=== PATIENT | female | born 1950 | race Caucasian/White ===

== ENCOUNTER 2017-03-21 16:28 | Inpatient (IN) | payer OTHER ==
[2017-03-21 16:59] VITALS: BMI 29.0
[2017-03-21 19:32] LABS: MCHC 28.1 g/dl (32.0-36.0); MEAN CELL VOLUME 58.8 fl (80-96); MEAN PLT VOLUME 9.1 fl (7.5-11.1); PLATELET COUNT 338 K/MM3 (134-434); RDW 19.8 % (11.6-15.6)
[2017-03-21 19:35] LABS: MCH 16.5 pg (25.7-33.7)
--- NOTE | 2017-03-21 19:36 | PDOC ---
History of Present Illness - General Chief Complaint: Pain Stated Complaint: COLD SYMPTOMS Time Seen by Provider: 03/21/17 19:31 History Source: Patient Exam Limitations: Language Barrier (The patient's sister provided South Korean translation.) - History of Present Illness Initial Comments: CHIEF COMPLAINT: 66 y/o afebrile female with PMH HTN c/o feeling fatigued x over 1 week. HISTORY OF PRESENT ILLNESS: The patient states she has had to have blood transfusions in the past and she has been worked up twice at [facility] and a cause has never been found. She is not on iron supplements. She denies f/c, n/ v/d, dizziness, CP, SOB, abd pain, rectal bleeding, hematemesis. PCP is at [facility]. Vital signs on arrival are notable for temp of 99.4 REVIEW OF SYSTEMS: GENERAL/CONSTITUTIONAL: No fever/chills. No weakness. No weight change. + fatigue HEAD, EYES, EARS, NOSE AND THROAT: No change in vision. No ear pain or discharge. No sore throat. CARDIOVASCULAR: No chest pain or shortness of breath. RESPIRATORY: No cough, wheezing, or hemoptysis. GASTROINTESTINAL: No abd pain, nausea, vomiting, diarrhea. GENITOURINARY: No dysuria, frequency, or change in urination. MUSCULOSKELETAL: No joint or muscle swelling or pain. No neck or back pain. SKIN: No rash or easy bruising. NEUROLOGIC: No headache, vertigo, loss of consciousness, or loss of sensation. PHYSICAL EXAM: GENERAL: The patient is awake, alert, and fully oriented, in no acute distress. She is well appearing, ambulatory, in NAD or obvious discomfort. HEAD: Normal with no signs of trauma. ENT: Pupils equal, round and reactive to light, extraocular movements intact, sclera anicteric, conjunctiva very pale. Neck supple. LUNGS: Clear to auscultation bilaterally. Normal excursion. No respiratory distress or use of accessory muscles. CV: RRR, S1/S2, no MRG. Cap refill < 2 sec. ABDOMEN: Soft, non-distended, non-tender even to deep palpation, no hepatomegaly or splenomegaly, no masses. EXTREMITIES: Normal range of motion, no edema. NEUROLOGICAL: Normal speech, normal gait. CN II-XII grossly intact. PSYCH: Normal mood, normal affect. SKIN: Warm, dry, normal turgor, no rashes or lesions noted. Past History - Past Medical History Allergies/Adverse Reactions: Allergies Allergy/AdvReac Type Severity Reaction Status Date / Time No Known Allergies Allergy Verified 03/21/17 16:55 Home Medications: Ambulatory Orders Amlodipine Besylate 5 mg PO DAILY 03/21/17 - Psycho/Social/Smoking Cessation Hx Anxiety: No Suicidal Ideation: No Smoking History: Never smoked Have you smoked in the past 12 months: No Information on smoking cessation initiated: No Hx Alcohol Use: No Drug/Substance Use Hx: No Substance Use Type: None *Physical Exam - Vital Signs Last Vital Signs Temp Pulse Resp BP Pulse Ox 99.4 F 90 18 143/73 99 03/21/17 16:55 03/21/17 16:55 03/21/17 16:55 03/21/17 16:55 03/21/17 16:55 Heart Score/ECG Review - ECG Intrepretation Comment:: Twelve-lead EKG was performed and reviewed by Dr. Chen. There is normal sinus rhythm with sinus arrhythmia. The axis is normal. The intervals are normal. There are no ST or T wave abnormalities. Impression: Normal twelve-lead EKG ED Treatment Course - LABORATORY CBC & Chemistry Diagram: 03/21/17 19:15 03/21/17 20:00 Medical Decision Making - Medical Decision Making A/P: 66 y/o afebrile female with fatigue x over 1 week with prior history of blood transfusions. Plan is as follows: 1. Labs 2. EKG 3. UA 4. Stool occult blood Laboratory Tests 03/21/17 19:15 Hgb 5.9 L* Hct 20.9 L CXR IMPRESSION: Cardiomegaly. No acute disease. Blood type - O+ Will order 2 units of PRBCs Spoke with Dr. Ward, hospitalist, who accepts admission to non-cardiac tele. Supposedly she's been worked up in the past for her anemia at [facility] but we have no records here so will do full admission. Occult stool negative Pt made aware of the plan and is amenable. *DC/Admit/Observation/Transfer Diagnosis at time of Disposition: Anemia Qualifiers: Anemia type: unspecified type Qualified Code(s): D64.9 - Anemia, unspecified - Discharge Dispostion Condition at time of disposition: Stable Admit: Yes - Referrals Referrals: Rosa Escobar MD [Primary Care Provider] -
[2017-03-21 19:41] LABS: INR 1.11 (0.82-1.09); PROTHROMBIN TIME (PATIENT) 12.2 SEC (9.98-11.88)
--- NOTE | 2017-03-21 19:56 | PDOC ---
*Physical Exam - Vital Signs Last Vital Signs Temp Pulse Resp BP Pulse Ox 99.4 F 90 18 143/73 99 03/21/17 16:55 03/21/17 16:55 03/21/17 16:55 03/21/17 16:55 03/21/17 16:55 ED Treatment Course - LABORATORY CBC & Chemistry Diagram: 03/23/17 07:19 03/22/17 06:00 - ADDITIONAL ORDERS Additional order review: Laboratory Results 03/21/17 19:15 INR 1.11 03/21/17 19:15 RBC 3.55 L MCV 58.8 L MCHC 28.1 L RDW 19.8 H MPV 9.1 Neutrophils % Y Lymphocytes % Y Medical Decision Making - Medical Decision Making 03/21/17 19:56 agree with care from MIKAYLA Balderas *DC/Admit/Observation/Transfer Diagnosis at time of Disposition: Anemia - Discharge Dispostion Disposition: HOME Condition at time of disposition: Stable - Prescriptions
[2017-03-21 20:25] LABS: ALBUMIN 3.7 g/dl (3.4-5.0); ALK PHOS 68 U/L (45-117); ANION GAP 10 (8-16); BILIRUBIN,TOTAL 0.4 mg/dL (0.2-1.0); CALCIUM 8.6 mg/dL (8.5-10.1); CO2 23 mmol/L (21-32); CREATININE 0.8 mg/dL (0.55-1.02); GLUCOSE,RANDOM 88 mg/dL (74-106); SGOT/AST 19 U/L (15-37); SGPT/ALT 21 U/L (12-78); TOT PROT 6.9 g/dl (6.4-8.2)
[2017-03-21 20:37] LABS: ANISOCYTOSIS 1+; HYPOCHROMIA 3+; PLATELET ESTIMATE ADEQUATE (NORMAL); POIKILOCYTOSIS 1+; POLYCHROMASIA 1+
[2017-03-21 20:38] LABS: MICROCYTOSIS 3+; OVALOCYTES 1+; TARGET CELLS 1+
--- NOTE | 2017-03-21 22:29 | HP ---
CHIEF COMPLAINT: SOB and lightheadedness PCP: Dr. Escobar at [facility] HISTORY OF PRESENT ILLNESS: This is a 66yo woman with PMH of HTN who presents for care today after experiencing lightheadedness and SOB. She states she was in her [place] when she suddenly became lightheaded and was not able to catch her breath while lying down. She states this happened approximately 1 year ago which required transfusions for anemia. She states her w/u did not reveal a cause for anemia. She denies hematemesis, hematochezia, hemoptysis, chest pain , headaches, nausea or vomiting. ER course was notable for: (1) Hgb-5.9 (2) Pyuria Recent Travel: denies PAST MEDICAL HISTORY: HTN PAST SURGICAL HISTORY: denies Social History: Smoking: denies Alcohol: denies Drugs: denies Family History: Allergies No Known Allergies Allergy (Verified 03/21/17 16:55) HOME MEDICATIONS: Home Medications 3 Medication Instructions Recorded Amlodipine Besylate 5 mg PO DAILY 03/21/17 REVIEW OF SYSTEMS CONSTITUTIONAL: Absent: fever, chills, diaphoresis, generalized weakness, malaise, loss of appetite, weight change HEENT: Absent: rhinorrhea, nasal congestion, throat pain, throat swelling, difficulty swallowing, mouth swelling, ear pain, eye pain, visual changes CARDIOVASCULAR: Present- lightheadedness Absent: chest pain, syncope, palpitations, irregular heart rate, peripheral edema RESPIRATORY: Present- shortness of breath Absent: cough, dyspnea with exertion, orthopnea, wheezing, stridor, hemoptysis GASTROINTESTINAL: Absent: abdominal pain, abdominal distension, nausea, vomiting, diarrhea, constipation, melena, hematochezia GENITOURINARY: Absent: dysuria, frequency, urgency, hesitancy, hematuria, flank pain, genital pain MUSCULOSKELETAL: Absent: myalgia, arthralgia, joint swelling, back pain, neck pain SKIN: Absent: rash, itching, pallor HEMATOLOGIC/IMMUNOLOGIC: Absent: easy bleeding, easy bruising, lymphadenopathy, frequent infections ENDOCRINE: Absent: unexplained weight gain, unexplained weight loss, heat intolerance, cold intolerance NEUROLOGIC: Present- Lightheadedness Absent: headache, focal weakness or paresthesias, unsteady gait, seizure, mental status changes, bladder or bowel incontinence PSYCHIATRIC: Absent: anxiety, depression, suicidal or homicidal ideation, hallucinations. PHYSICAL EXAMINATION Vital Signs - 24 hr 3 06/22/17 16:55 Temperature 99.4 F Pulse Rate 90 Respiratory 18 Rate Blood Pressure 143/73 O2 Sat by Pulse 99 Oximetry (%) GENERAL: Awake, alert, and fully oriented, in no acute distress. HEAD: Normal with no signs of trauma. EYES: Pupils equal, round and reactive to light, extraocular movements intact, sclera anicteric, conjunctiva pale. No lid lag. EARS, NOSE, THROAT: Ears normal, nares patent, oropharynx clear without exudates. Moist mucous membranes. Pale mucous membranes. NECK: Normal range of motion, supple without lymphadenopathy, JVD, or masses. LUNGS: Breath sounds equal, clear to auscultation bilaterally. No wheezes, and no crackles. No accessory muscle use. HEART: Regular rate and rhythm, normal S1 and S2 without, rub or gallop. 2/6 systolic murmur across precordium. ABDOMEN: Soft, nontender, not distended, normoactive bowel sounds, no guarding, no rebound, no masses. No hepatomegaly or splenomegaly. MUSCULOSKELETAL: Normal range of motion at all joints. No bony deformities or tenderness. No CVA tenderness. UPPER EXTREMITIES: 2+ pulses, warm, well-perfused. No cyanosis. No clubbing. No peripheral edema. LOWER EXTREMITIES: 2+ pulses, warm, well-perfused. No calf tenderness. No peripheral edema. NEUROLOGICAL: Cranial nerves II-XII intact. Normal speech. Normal gait. Rhomberg (-). PSYCHIATRIC: Cooperative. Good eye contact. Appropriate mood and affect. SKIN: Warm, dry, normal turgor, no rashes or lesions noted, normal capillary refill. Laboratory Results - last 24 hr 3 03/21/17 03/21/17 03/21/17 19:15 19:15 19:50 WBC 10.0 RBC 3.55 L Hgb 5.9 L* Hct 20.9 L MCV 58.8 L MCHC 28.1 L RDW 19.8 H Plt Count 338 MPV 9.1 Neutrophils % 76.0 Lymphocytes % 14.0 Monocytes % 6.0 Eosinophils % 2.0 Basophils % 1.0 Band Neutrophils 1.0 Differential Comment Manual diff done Platelet Estimate Adequate Polychromasia 1+ Hypochromic-Microcytic 3+ Poikilocytosis 1+ Basophilic Stippling Rare Anisocytosis 1+ Microcytosis 3+ Target Cells 1+ Ovalocytes 1+ Morphology Comment Slide scanned INR 1.11 Sodium Potassium Chloride Carbon Dioxide Anion Gap BUN Creatinine Creat Clearance w eGFR Random Glucose Calcium Total Bilirubin AST ALT Alkaline Phosphatase Total Protein Albumin Stool Occult Blood Blood Type O POSITIVE Antibody Screen Negative Crossmatch See Detail 3 03/21/17 03/21/17 20:00 20:53 WBC RBC Hgb Hct MCV MCHC RDW Plt Count MPV Neutrophils % Lymphocytes % Monocytes % Eosinophils % Basophils % Band Neutrophils Differential Comment Platelet Estimate Polychromasia Hypochromic-Microcytic Poikilocytosis Basophilic Stippling Anisocytosis Microcytosis Target Cells Ovalocytes Morphology Comment INR Sodium 139 Potassium 4.3 Chloride 106 Carbon Dioxide 23 Anion Gap 10 BUN 15 Creatinine 0.8 Creat Clearance w eGFR > 60 Random Glucose 88 Calcium 8.6 Total Bilirubin 0.4 AST 19 ALT 21 Alkaline Phosphatase 68 Total Protein 6.9 Albumin 3.7 Stool Occult Blood Negative Blood Type Antibody Screen Crossmatch ASSESSMENT/PLAN: A: 66 yo woman with symptomatic Fe deficiency anemia given ferritin<15 and normal LDH. FOBT (-). UA with WBC-14, RBC-1 and Leuk Esterase 1+. P: 1. Anemia - Fe deficiency given ferritin <15 and normal LDH - Fe, Fe sat, TIBC pending - transfuse 2 units PRBC's - repeat CBC after transfusion - daily CBC - FeSo4 supplement 2. HTN - hypertensive here- will maintain home dosing of Norvasc in setting of anemia - Home Norvasc 5mg 3. UTI - urine cx - febrile prior to transfusion - Empiric Rocephin 4. F/E/N - Low Na diet - replete prn 5. PPX - OOB - SCD - heparin Dispo- Pt requires inpatient evaluation of her acute medical condition. Visit type - Emergency Visit Emergency Visit: Yes ED Registration Date: 03/21/17 Care time: The patient presented to the Emergency Department on the above date and was hospitalized for further evaluation of their emergent condition. - New Patient This patient is new to me today: Yes Date on this admission: 03/22/17 - Critical Care Critical Care patient: No
[2017-03-21 22:39] LABS: INR 1.16 (0.82-1.09); PROTHROMBIN TIME (PATIENT) 12.8 SEC (9.98-11.88)
[2017-03-21 22:39] LABS: URINE APPEARANCE CLEAR; URINE BILIRUBIN NEGATIVE (NEGATIVE); URINE BLOOD NEGATIVE (NEGATIVE); URINE COLOR STRAW; URINE GLUCOSE (UA) NEGATIVE (NEGATIVE); URINE KETONE NEGATIVE (NEGATIVE); URINE NITRITE NEGATIVE (NEGATIVE); URINE PROTEIN NEGATIVE (NEGATIVE); URINE UROBILINOGEN NEGATIVE E.U./dl (0.2-1.0)
[2017-03-21 22:40] LABS: URINE LEUK ESTERASE 1+ (NEGATIVE)
[2017-03-21 22:41] LABS: ACTIVATED PTT 34.1 SECONDS (26.9-34.4)
[2017-03-21 22:41] LABS: URINE BACTERIA RARE /hpf (NONE SEEN); URINE RBC <1 /hpf (0-3); URINE WBC 14 /hpf (3-5)
[2017-03-22] MEDS ORDERED: ACETAMINOPHEN 500 MG TABLET (FP) ONE (00:57)
[2017-03-22] MEDS: ACETAMINOPHEN 500 MG TABLET (FP) PO PRN (01:03)
[2017-03-22] MEDS ORDERED: cefTRIAXone 1 GM/50 ML BAG (PRE-DOCKED) IVPB SCH ×2 (01:15→10:00)
[2017-03-22] MEDS: cefTRIAXone 1 GM/50 ML BAG (PRE-DOCKED) IVPB SCH ×2 (01:44→12:56)
[2017-03-22 03:18] LABS: TROPONIN I < 0.02 ng/ml (0.00-0.05)
[2017-03-22 08:01] LABS: ANION GAP 8 (8-16); CALCIUM 8.1 mg/dL (8.5-10.1); CO2 24 mmol/L (21-32); CREATININE 0.9 mg/dL (0.55-1.02); GLUCOSE,RANDOM 90 mg/dL (74-106)
[2017-03-22 08:07] LABS: BASOPHIL 0.8 % (0-2.0); EOSINOPHIL 3.7 % (0-4.5); MCHC 29.2 g/dl (32.0-36.0); MEAN CELL VOLUME 62.9 fl (80-96); MEAN PLT VOLUME 8.5 fl (7.5-11.1); NEUTROPHILS 67.2 % (42.8-82.8); PLATELET COUNT 285 K/MM3 (134-434); RDW 23.4 % (11.6-15.6); WHITE BLOOD COUNT 6.9 K/mm3 (4.0-10.0)
[2017-03-22 08:23] LABS: MCH 18.3 pg (25.7-33.7)
[2017-03-22] MEDS ORDERED: HEPARIN NA (PORCINE) 5,000 UNITS/ML 1ML VIAL SQ SCH (10:00)
[2017-03-22] MEDS: amLODIPine BESYLATE 5 MG TABLET (FP) PO SCH (10:06)
--- NOTE | 2017-03-22 10:31 | EKG ---
Test Reason : Blood Pressure : / mmHG Vent. Rate : 077 BPM Atrial Rate : 077 BPM P-R Int : 140 ms QRS Dur : 076 ms QT Int : 388 ms P-R-T Axes : 029 052 005 degrees QTc Int : 439 ms NORMAL SINUS RHYTHM WITH SINUS ARRHYTHMIA NORMAL ECG NO PREVIOUS ECGS AVAILABLE Confirmed by MATTHIEU WORKMAN MD ([id number]) on 03/22/2017 10:31:03 AM Referred By: Confirmed By:MATTHIEU WORKMAN MD
--- NOTE | 2017-03-22 13:52 | PN ---
Progress Note (short form) - Note Progress Note: Subjective: The patient was seen and examined at the bedside, she reports decrease in shortness of breath. Received her second unit of PRBC today Anemia panel pending Current Medications Generic Name Dose Route Start Last Admin Trade Name Checo PRN Reason Stop Dose Admin Acetaminophen 1,000 mg 03/22/17 00:50 03/22/17 01:03 Tylenol - PO 1,000 mg Q6H PRN Administration FEVER OR PAIN Amlodipine Besylate 5 mg 03/22/17 10:00 03/22/17 10:06 Norvasc - PO 5 mg DAILY YANCY Administration Ceftriaxone Sodium 1 gm 03/22/17 01:30 03/22/17 12:56 Rocephin 1gm Ivpb (Pre-Docked) IVPB 1 gm DAILY YANCY Administration Protocol Heparin Sodium (Porcine) 5,000 unit 03/22/17 10:00 03/22/17 12:54 Heparin - SQ Not Given BID YANCY Objective: Vital Signs Period Temp Pulse Resp BP Sys/Harmon Pulse Ox Last 24 Hr 98 F-100.7 F 70-90 18-20 99-145/57-78 98-99 Physical Exam: General: NAD, A&Ox3 Lungs: CTA bilaterally Heart: RRR, S1S2 Abd: Soft, non-tender, non-distended. Normoactive bowel sounds Ext: Warm, well-perfused. 2+ DP/PT bilaterally Neuro: CN 2-12 intact CBCD WBC 6.9 K/mm3 (4.0-10.0) D 03/22/17 06:00 RBC 3.59 M/mm3 (3.60-5.2) L 03/22/17 06:00 Hgb 6.6 GM/dL (10.7-15.3) L* D 03/22/17 06:00 Hct 22.6 % (32.4-45.2) L 03/22/17 06:00 MCV 62.9 fl (80-96) L 03/22/17 06:00 MCHC 29.2 g/dl (32.0-36.0) L 03/22/17 06:00 RDW 23.4 % (11.6-15.6) H D 03/22/17 06:00 Plt Count 285 K/MM3 (134-434) 03/22/17 06:00 MPV 8.5 fl (7.5-11.1) 03/22/17 06:00 CMP Sodium 142 mmol/L (136-145) 03/22/17 06:00 Potassium 4.5 mmol/L (3.5-5.1) 03/22/17 06:00 Chloride 110 mmol/L (98-107) H 03/22/17 06:00 Carbon Dioxide 24 mmol/L (21-32) 03/22/17 06:00 Anion Gap 8 (8-16) 03/22/17 06:00 BUN 16 mg/dL (7-18) 03/22/17 06:00 Creatinine 0.9 mg/dL (0.55-1.02) 03/22/17 06:00 Creat Clearance w eGFR > 60 (>60) 03/21/17 20:00 Random Glucose 90 mg/dL (74-106) 03/22/17 06:00 Calcium 8.1 mg/dL (8.5-10.1) L 03/22/17 06:00 Total Bilirubin 0.4 mg/dL (0.2-1.0) 03/21/17 20:00 AST 19 U/L (15-37) 03/21/17 20:00 ALT 21 U/L (12-78) 03/21/17 20:00 Alkaline Phosphatase 68 U/L (45-117) 03/21/17 20:00 Total Protein 6.9 g/dl (6.4-8.2) 03/21/17 20:00 Albumin 3.7 g/dl (3.4-5.0) 03/21/17 20:00 CARDIAC ENZYMES Creatine Kinase 67 IU/L (26-192) 03/21/17 22:15 Troponin I < 0.02 ng/ml (0.00-0.05) 03/21/17 22:15 Assessment: This is a 66 year old female with PMHx of HTN who presented to the ED with lightheadedness and shortness of breath and was found to have severe anemia. Plan: 1) Hematology: Symptomatic anemia - The patient reports receiving 3u PRBC in the [facility] [place] 2 years ago and last April she received 2u PRBC at [facility]. At that time she also had a colonoscopy and endoscopy with Dr. Kelly which she states showed only hemorrhoids. Release for medical records form faxed to [facility] - Denies any bleeding - Stool for occult blood negative - S/p 2u PRBC, f/u repeat CBC - Anemia panel pending - Continue to trend 2) Cardiology: HTN - Continue Norvasc 3) ID: UTI, fever - Tmax 100.7 - UA with 1+ leuks, WBC 14 - F/u urine culture - F/u blood cultures 4) F/E/N: - Monitor electrolytes - Sodium controlled diet 5) Prophylaxis: - OOB ambulating - SCDs bilaterally - Hold all chemical DVT prophylaxis 2/2 severe anemia 6) Dispo: - Requires continued inpatient care CODE STATUS: FULL CODE Visit type - Emergency Visit Emergency Visit: Yes ED Registration Date: 03/21/17 Care time: The patient presented to the Emergency Department on the above date and was hospitalized for further evaluation of their emergent condition. - New Patient This patient is new to me today: No - Critical Care Critical Care patient: No
[2017-03-22 15:28] LABS: MCHC 29.5 g/dl (32.0-36.0); MEAN CELL VOLUME 65.1 fl (80-96); MEAN PLT VOLUME 8.8 fl (7.5-11.1); PLATELET COUNT 313 K/MM3 (134-434); RDW 27.4 % (11.6-15.6); WHITE BLOOD COUNT 7.3 K/mm3 (4.0-10.0)
[2017-03-22 15:31] LABS: MCH 19.2 pg (25.7-33.7)
[2017-03-23 06:07] LABS: SERUM IRON 11 ug/dL (27-139); TOTAL IRON BINDING CAPACITY 507 ug/dL (250-450); UIBC 496 ug/dL (118-369)
[2017-03-23 07:36] LABS: MCHC 30.3 g/dl (32.0-36.0); MEAN CELL VOLUME 65.1 fl (80-96); MEAN PLT VOLUME 8.8 fl (7.5-11.1); PLATELET COUNT 260 K/MM3 (134-434); RDW 26.6 % (11.6-15.6); WHITE BLOOD COUNT 6.7 K/mm3 (4.0-10.0)
[2017-03-23 07:38] LABS: MCH 19.7 pg (25.7-33.7)
[2017-03-23] MEDS: cefTRIAXone 1 GM/50 ML BAG (PRE-DOCKED) IVPB SCH (09:21)
[2017-03-23] MEDS: amLODIPine BESYLATE 5 MG TABLET (FP) PO SCH (09:21)
[2017-03-23] MEDS: ACETAMINOPHEN 500 MG TABLET (FP) PO PRN (09:51)
--- NOTE | 2017-03-23 10:02 | PN ---
Physical Exam: SUBJECTIVE: Patient seen and examined at bedside. She denies any bleeding. Denies all c/o at present. OBJECTIVE: Vital Signs 3 Period Temp Pulse Resp BP Sys/Harmon Pulse Ox Last 24 Hr 97.9 F-99.4 F 72-82 18-20 100-120/54-70 98 GENERAL: The patient is awake, alert, and fully oriented, in no acute distress. HEAD: Normal with no signs of trauma. EYES: PERRL, extraocular movements intact, sclera anicteric, conjunctiva clear. No ptosis. ENT: Ears normal, nares patent, oropharynx clear without exudates, moist mucous membranes. NECK: Trachea midline, full range of motion, supple. LUNGS: Breath sounds equal, clear to auscultation bilaterally, no wheezes, no crackles, no accessory muscle use. HEART: Regular rate and rhythm, S1, S2 without murmur, rub or gallop. ABDOMEN: Soft, nontender, nondistended, normoactive bowel sounds, no guarding, no rebound, no hepatosplenomegaly, no masses. EXTREMITIES: 2+ pulses, warm, well-perfused, no edema. NEUROLOGICAL: Cranial nerves II through XII grossly intact. Normal speech, gait not observed. PSYCH: Normal mood, normal affect. SKIN: Warm, dry, normal turgor, no rashes or lesions noted Laboratory Results - last 24 hr 3 03/22/17 03/23/17 03/23/17 14:55 07:19 07:19 WBC 7.3 6.7 RBC 4.10 4.22 Hgb 7.9 L D 8.3 L Hct 26.7 L D 27.5 L MCV 65.1 L 65.1 L MCHC 29.5 L 30.3 L RDW 27.4 H 26.6 H Plt Count 313 260 MPV 8.8 8.8 Troponin I < 0.02 Active Medications 3 Generic Name Dose Route Start Last Admin Trade Name Freq PRN Reason Stop Dose Admin Acetaminophen 1,000 mg 03/22/17 00:50 03/23/17 09:51 Tylenol - PO 1,000 mg Q6H PRN Administration FEVER OR PAIN Amlodipine Besylate 5 mg 03/22/17 10:00 03/23/17 09:21 Norvasc - PO 5 mg DAILY YANCY Administration Ceftriaxone Sodium 1 gm 03/22/17 01:30 03/23/17 09:21 Rocephin 1gm Ivpb (Pre-Docked) IVPB 1 gm DAILY YANCY Administration Protocol ASSESSMENT/PLAN: Assessment: This is a 66 year old female with PMHx of HTN who presented to the ED with lightheadedness and shortness of breath and was found to have severe anemia. Plan: 1) Symptomatic anemia - The patient reports receiving 3u PRBC in the [facility] 2 years ago and last April she received 2u PRBC at [facility]. At that time she also had a colonoscopy and endoscopy with Dr. Kelly which she states showed only hemorrhoids. Release for medical records form faxed to [facility] - Denies any bleeding - Stool for occult blood negative - S/p 2u PRBC, Hgb uptrending 5.9->7.9->8.3 - Anemia panel c/w Fe deficiency anemia - start Fe SO4 325mg with meals - folate level pending- can f/u as outpatient - Continue to trend 2) HTN - Continue Norvasc 3) UTI, fever - Tmax 100.7 - UA with 1+ leuks, WBC 14 - urine culture- no growth - F/u blood cultures 4) F/E/N: - Monitor electrolytes - Sodium controlled diet 5) Prophylaxis: - OOB ambulating - SCDs bilaterally - Hold all chemical DVT prophylaxis 2/2 severe anemia 6) Dispo: - Requires continued inpatient care Visit type - Emergency Visit Emergency Visit: Yes ED Registration Date: 03/21/17 Care time: The patient presented to the Emergency Department on the above date and was hospitalized for further evaluation of their emergent condition. - New Patient This patient is new to me today: No - Critical Care Critical Care patient: No
[2017-03-23] MEDS: FERROUS SO4 325 MG TABLET (FP) PO SCH ×2 (12:00→18:01)
--- NOTE | 2017-03-23 18:02 | DS ---
Physical Exam: SUBJECTIVE: Patient seen and examined OBJECTIVE: Vital Signs Period Temp Pulse Resp BP Sys/Harmon Pulse Ox Last 24 Hr 98.6 F-99.3 F 73-82 19-20 100-120/55-72 98-100 PHYSICAL EXAM GENERAL: The patient is awake, alert, and fully oriented, in no acute distress. HEAD: Normal with no signs of trauma. EYES: PERRL, extraocular movements intact, sclera anicteric, conjunctiva clear. ENT: Ears normal, nares patent, oropharynx clear without exudates, moist mucous membranes. NECK: Trachea midline, full range of motion, supple. LUNGS: Breath sounds equal, clear to auscultation bilaterally, no wheezes, no crackles, no accessory muscle use. HEART: Regular rate and rhythm, S1, S2 without murmur, rub or gallop. ABDOMEN: Soft, nontender, nondistended, normoactive bowel sounds, no guarding, no rebound, no hepatosplenomegaly, no masses. EXTREMITIES: 2+ pulses, warm, well-perfused, no edema. NEUROLOGICAL: Cranial nerves II through XII grossly intact. Normal speech, gait not observed. PSYCH: Normal mood, normal affect. SKIN: Warm, dry, normal turgor, no rashes or lesions noted. LABS Laboratory Results - last 24 hr 03/23/17 03/23/17 07:19 07:19 WBC 6.7 RBC 4.22 Hgb 8.3 L Hct 27.5 L MCV 65.1 L MCHC 30.3 L RDW 26.6 H Plt Count 260 MPV 8.8 Troponin I < 0.02 HOSPITAL COURSE: Date of Admission:03/21/17 Date of Discharge: 03/23/17 Discharge Summary Reason For Visit: ANEMIA (NON CARD TELE) Current Active Problems Anemia (Acute) Condition: Stable - Instructions Diet, Activity, Other Instructions: Eat a well balanced low sodium diet. Eat plenty of high iron foods like leafy dark green vegetables, beans and shellfish. Take iron supplements 30 minutes before eating. To help absorb higher levels of iron, eat foods high in vitamin C- citrus fruits and juices. Follow up with Dr. Bay within 1 week for further evaluation of anemia. Resume your home Norvasc as prescribed by your doctor. Return to the ED for any bleeding, weakness, shortness of breath, dizziness, lightheadedness or any other symptoms. Disposition: HOME - Home Medications Comprehensive Discharge Medication List: Ambulatory Orders Amlodipine Besylate 5 mg PO DAILY 03/21/17 This patient is new to me today: No Emergency Visit: Yes ED Registration Date: 03/21/17 Care time: The patient presented to the Emergency Department on the above date and was hospitalized for further evaluation of their emergent condition. Critical Care patient: No - Discharge Referral Physician Referral: Cory Munroe MD ([facility])
[2017-03-23 20:50] VITALS: BP 124/68; PULSE 80; TEMP 98
== END 2017-03-23 19:19 | disposition home or self-care (01) | DRG 812 ==
LOC: JER 16:28 → JERBED 21:42 → J4W 03-22 00:40
PROVIDERS: ADMIT Internal Medicine; ATTEND Nurse Practitioner Family
PROC: 30233N1 Transfusion of Nonautologous Red Blood Cells into Peripheral Vein, Percutaneous Approach (ICD-10-PCS; principal; 2017-03-22)
DX: D64.9 Anemia, unspecified (principal); N39.0 Urinary tract infection, site not specified; I10 Essential (primary) hypertension
CPT/HCPCS: 36415; 36430; 71020-TC; 80048; 80053; 81003; 81015; 82272; 82550; 82728; 82747; 83540; 83550; 83615; 84484; 85014; 85025; 85027; 85044; 85610; 85730; 86850; 86900; 86901; 86922; 87040; 87086; 93005; 93010; 99285-25; P9038; P9058

== ENCOUNTER 2023-02-25 12:36 | Emergency (ER) | payer OTHER ==
[2023-02-25 13:04] VITALS: RESP 20; TEMP 98.2; BMI 27.6
[2023-02-25 17:22] VITALS: BP 116/71; PULSE 71
== END 2023-02-25 18:33 ==
LOC: JER 12:36
DX: M25.512 Pain in left shoulder (principal); M54.2 Cervicalgia; R51.9 Headache, unspecified; M54.9 Dorsalgia, unspecified; W06.XXXA Fall from bed, initial encounter
CPT/HCPCS: 70450-TC; 71045-TC-FY; 72125-TC; 72128-TC; 72131-TC; 72170-TC-FY; 73030-TC-RT-FY; 93005; 93010; 99285-25

== ENCOUNTER 2023-03-23 10:20 | Emergency (ER) | payer OTHER ==
[2023-03-23 10:41] VITALS: TEMP 98.4; BMI 27.5
[2023-03-23 16:33] VITALS: BP 111/74; PULSE 84
== END 2023-03-23 17:00 ==
LOC: JER 10:20
DX: T85.628A Displacement of other specified internal prosthetic devices, implants and grafts, initial encounter (principal); J95.03 Malfunction of tracheostomy stoma
CPT/HCPCS: 71045-TC-FY; 99283-25

== ENCOUNTER 2023-08-12 13:11 | Emergency (ER) | payer OTHER ==
[2023-08-12 13:47] VITALS: BMI 28.3
[2023-08-12 14:29] LABS: BASO % 0.7 % (0-2.0); EOS % 2.7 % (0-4.5); HEMATOCRIT 44.7 % (32.4-45.2); LYMPH % 20.7 % (8-40); MCH 31.1 pg (25.7-33.7); MCHC 31.3 g/dl (32.0-36.0); MEAN CELL VOLUME 99.2 fl (80-96); MEAN PLT VOLUME 8.8 fl (7.5-11.1); MONO % 6.8 % (3.8-10.2); NEUT % 69.1 % (42.8-82.8); PLATELET COUNT 233 10^3/uL (134-434); RDW 14.6 % (11.6-15.6); WHITE BLOOD COUNT 6.6 K/mm3 (4.0-10.0)
[2023-08-12 14:45] LABS: POTASSIUM 4.9 mmol/L (3.5-5.1)
[2023-08-12 14:47] LABS: BLOOD UREA NITROGEN 9.5 mg/dL (7-18); CALCIUM 8.6 mg/dL (8.5-10.1)
[2023-08-12 14:48] LABS: ALBUMIN 3.1 g/dl (3.4-5.0)
[2023-08-12 14:51] LABS: CREATININE 0.7 mg/dL (0.55-1.3)
[2023-08-12 14:52] LABS: BILIRUBIN,TOTAL 0.4 mg/dL (0.2-1); TOT PROT 6.5 g/dl (6.4-8.2)
[2023-08-12 14:55] LABS: N-TERMINAL BNP 219.6 pg/ml (5-125)
[2023-08-13 01:02] VITALS: RESP 18
[2023-08-13 01:21] VITALS: BP 108/50; PULSE 80; TEMP 98
== END 2023-08-13 01:21 | disposition home or self-care (01) ==
LOC: JER 13:11
DX: R06.02 Shortness of breath (principal)
CPT/HCPCS: 36415; 71045-TC-FY; 80053; 83880; 84484; 85025; 93005; 93010; 99285-25

== ENCOUNTER 2023-10-08 11:11 | Emergency (ER) | payer OTHER ==
[2023-10-08] MEDS ORDERED: ACETAMINOPHEN 325 MG TABLET (FP) PO ONE (11:47)
[2023-10-08 11:50] VITALS: BMI 26.7
[2023-10-08] MEDS ORDERED: ACETAMINOPHEN 325 MG TABLET (FP) ONE (12:24)
[2023-10-08] MEDS ORDERED: traMADol HCL 50 MG TABLET PO ONE (19:54)
[2023-10-08] MEDS ORDERED: traMADol HCL 50 MG TABLET ONE (20:06)
[2023-10-09 01:33] VITALS: BP 104/71; PULSE 108; RESP 20; TEMP 100.2
== END 2023-10-09 01:37 ==
LOC: JER 11:11
DX: S42.291A Other displaced fracture of upper end of right humerus, initial encounter for closed fracture (principal); R53.1 Weakness; W06.XXXA Fall from bed, initial encounter
CPT/HCPCS: 70450-TC; 71045-TC-FY; 72125-TC; 72170-TC-FY; 73030-TC-LT-FY; 73030-TC-RT-FY; 73060-TC-LT-FY; 73060-TC-RT-FY; 73070-TC-LT-FY; 73070-TC-RT-FY; 99284-25

== ENCOUNTER 2023-12-13 17:52 | Inpatient (IN) | payer OTHER ==
[2023-12-13 18:08] VITALS: BMI 31.7
[2023-12-13 22:15] LABS: BASO % 0.7 % (0-2.0); EOS % 2.2 % (0-4.5); HEMATOCRIT 43.1 % (32.4-45.2); HEMOGLOBIN 14.2 GM/dL (10.7-15.3); LYMPH % 23.2 % (8-40); MCH 32.5 pg (25.7-33.7); MCHC 32.9 g/dl (32.0-36.0); MEAN CELL VOLUME 98.7 fl (80-96); MONO % 8.1 % (3.8-10.2); NEUT % 65.8 % (42.8-82.8); PLATELET COUNT 248 10^3/uL (134-434); RBC 4.37 M/mm3 (3.60-5.2); RDW 14.4 % (11.6-15.6); WHITE BLOOD COUNT 7.4 K/mm3 (4.0-10.0)
[2023-12-13 22:22] LABS: INR 1.03 (0.83-1.09)
[2023-12-13 22:25] LABS: ACTIVATED PTT 32.1 SECONDS (25.2-36.5)
[2023-12-13 22:33] LABS: POTASSIUM 5.6 mmol/L (3.5-5.1)
[2023-12-13 22:35] LABS: CALCIUM 8.9 mg/dL (8.5-10.1)
[2023-12-13 22:36] LABS: ALBUMIN 3.2 g/dl (3.4-5.0); BLOOD UREA NITROGEN 8.5 mg/dL (7-18)
[2023-12-13 22:40] LABS: CREATININE 0.7 mg/dL (0.55-1.3)
[2023-12-13 22:41] LABS: BILIRUBIN,TOTAL 0.7 mg/dL (0.2-1); TOT PROT 6.8 g/dl (6.4-8.2)
[2023-12-14 00:06] LABS: POTASSIUM 4.1 mmol/L (3.5-5.1)
[2023-12-14 00:08] LABS: ALBUMIN 3.1 g/dl (3.4-5.0); BLOOD UREA NITROGEN 9.5 mg/dL (7-18)
[2023-12-14 00:11] LABS: CREATININE 0.7 mg/dL (0.55-1.3)
[2023-12-14 00:13] LABS: BILIRUBIN,TOTAL 0.6 mg/dL (0.2-1); TOT PROT 6.4 g/dl (6.4-8.2)
[2023-12-14 09:15] LABS: BASO % 0.7 % (0-2.0); EOS % 2.9 % (0-4.5); HEMATOCRIT 41.6 % (32.4-45.2); HEMOGLOBIN 13.6 GM/dL (10.7-15.3); LYMPH % 22.8 % (8-40); MCH 32.3 pg (25.7-33.7); MCHC 32.7 g/dl (32.0-36.0); MEAN CELL VOLUME 98.9 fl (80-96); MEAN PLT VOLUME 8.3 fl (7.5-11.1); MONO % 7.7 % (3.8-10.2); NEUT % 65.9 % (42.8-82.8); PLATELET COUNT 242 10^3/uL (134-434); RBC 4.21 M/mm3 (3.60-5.2); RDW 14.5 % (11.6-15.6); WHITE BLOOD COUNT 5.8 K/mm3 (4.0-10.0)
[2023-12-14 09:32] LABS: POTASSIUM 4.3 mmol/L (3.5-5.1)
[2023-12-14 09:34] LABS: CALCIUM 9.2 mg/dL (8.5-10.1)
[2023-12-14 09:35] LABS: ALBUMIN 3.1 g/dl (3.4-5.0); BLOOD UREA NITROGEN 9.7 mg/dL (7-18); MAGNESIUM 2.4 mg/dL (1.8-2.4)
[2023-12-14 09:38] LABS: CREATININE 0.6 mg/dL (0.55-1.3)
[2023-12-14 09:39] LABS: BILIRUBIN,TOTAL 0.7 mg/dL (0.2-1); TOT PROT 6.4 g/dl (6.4-8.2)
[2023-12-14] MEDS ORDERED: ENOXAPARIN NA (PORCINE) 40 MG/0.4 ML DISP.SYRIN SQ SCH (10:00)
[2023-12-14] MEDS: NYSTATIN POWDER 100,000 UNITS/GM - 15 GM TOPICAL POWDER TP SCH (10:01)
[2023-12-14] MEDS: ARTIFICIAL TEARS OPHTHALMIC DROPS OU SCH (10:46)
[2023-12-14] MEDS: HEPARIN NA (PORCINE) 5,000 UNITS/ML 1ML VIAL SQ SCH (10:46)
[2023-12-14] MEDS ORDERED: ALBUTEROL SO4 2.5/IPRATROPIUM 0.5 INH SOL 3 ML VIAL.NEB. NEB PRN (14:45)
[2023-12-14] MEDS: ALBUTEROL SO4 2.5/IPRATROPIUM 0.5 INH SOL 3 ML VIAL.NEB. NEB SCH (20:30)
[2023-12-15] MEDS: AMINO ACIDS 4.25%/D5W 1,000 ML IV SCH (13:46)
[2023-12-16 09:33] LABS: POTASSIUM 3.7 mmol/L (3.5-5.1)
[2023-12-16 09:35] LABS: CALCIUM 8.7 mg/dL (8.5-10.1)
[2023-12-16 09:36] LABS: ALBUMIN 3.1 g/dl (3.4-5.0); BLOOD UREA NITROGEN 17.2 mg/dL (7-18)
[2023-12-16 09:39] LABS: CREATININE 0.6 mg/dL (0.55-1.3)
[2023-12-16 09:40] LABS: TOT PROT 6.2 g/dl (6.4-8.2)
[2023-12-17] MEDS: ZINC OXIDE 20% TOPICAL OINTMENT 30 GM TUBE TP SCH (11:16)
[2023-12-17 15:34] VITALS: RESP 18
[2023-12-18] MEDS: ALPRAZolam 0.25 MG TABLET PO ONE (17:33)
[2023-12-19 08:58] LABS: BASO % 0.9 % (0-2.0); EOS % 3.2 % (0-4.5); HEMATOCRIT 40.9 % (32.4-45.2); HEMOGLOBIN 13.4 GM/dL (10.7-15.3); LYMPH % 26.7 % (8-40); MCH 31.9 pg (25.7-33.7); MCHC 32.8 g/dl (32.0-36.0); MEAN CELL VOLUME 97.4 fl (80-96); MEAN PLT VOLUME 8.8 fl (7.5-11.1); MONO % 8.6 % (3.8-10.2); NEUT % 60.6 % (42.8-82.8); PLATELET COUNT 203 10^3/uL (134-434); RBC 4.19 M/mm3 (3.60-5.2); WHITE BLOOD COUNT 4.5 K/mm3 (4.0-10.0)
[2023-12-19 09:12] LABS: POTASSIUM 4.1 mmol/L (3.5-5.1)
[2023-12-19 09:13] LABS: CALCIUM 9.2 mg/dL (8.5-10.1)
[2023-12-19 09:14] LABS: BLOOD UREA NITROGEN 7.7 mg/dL (7-18); MAGNESIUM 2.2 mg/dL (1.8-2.4)
[2023-12-19 09:18] LABS: CREATININE 0.6 mg/dL (0.55-1.3); PHOSPHOROUS 3.3 mg/dL (2.5-4.9)
[2023-12-31] MEDS: DOCUSATE SODIUM 100 MG CAPSULE (FP) PO ONE (11:30)
[2023-12-31] MEDS: BISACODYL 5 MG TABLET.DR (FP) PO ONE (11:44)
[2023-12-31 12:49] VITALS: BP 99/59; PULSE 72; TEMP 98.9
== END 2023-12-31 12:43 | DRG 391 ==
LOC: JER 17:52 → JERBED 22:43 → J5S 12-14 04:44
PROVIDERS: ADMIT Internal Medicine; ATTEND Internal Medicine
DX: R11.2 Nausea with vomiting, unspecified (principal); R53.2 Functional quadriplegia; G93.41 Metabolic encephalopathy; J96.11 Chronic respiratory failure with hypoxia; I69.354 Hemiplegia and hemiparesis following cerebral infarction affecting left non-dominant side; R13.12 Dysphagia, oropharyngeal phase; K44.9 Diaphragmatic hernia without obstruction or gangrene; I10 Essential (primary) hypertension; Z93.0 Tracheostomy status; L89.152 Pressure ulcer of sacral region, stage 2; K21.9 Gastro-esophageal reflux disease without esophagitis; D50.9 Iron deficiency anemia, unspecified
CPT/HCPCS: 0241U-QW; 36415; 70450-TC; 71045-TC-FY; 71250-TC; 74230-TC-FY; 80048; 80053; 83605; 83735; 84100; 84443; 85025; 85610; 85730; 86850; 86900; 86901; 87635; 92611-GN; 93005; 93010; 94640; 99285-25; J1644